=== PATIENT | male | born 1955 | race Caucasian/White ===

== ENCOUNTER → 2019-08-17 | Day surgery (SDC) | payer OTHER ==
[2019-08-16 12:45] VITALS: BP 119/78
[2019-08-16 15:16] LABS: BASOPHILS # (AUTO) 0.1 (0.0-0.1); BASOPHILS % 1.5 % (0.0-1.0); EOSINOPHILS % 0.6 % (0.0-6.0); HEMATOCRIT 45.1 % (38.2-49.6); LYMPHOCYTES # (AUTO) 1.3 (1.0-3.2); MEAN CORPUSCULAR HEMOGLOBIN 33.3 pg (28-32); MEAN CORPUSCULAR HGB CONC 35.5 g/dL (31-35); MEAN CORPUSCULAR VOLUME 93.8 fL (81-99); MONOCYTES # (AUTO) 0.6 (0.2-0.8); MONOCYTES % 10.2 % (4.4-11.3); NEUTROPHILS # (AUTO) 3.4 (2.1-6.9); NEUTROPHILS % 63.5 % (38.7-80.0); PLATELET COUNT 153 x10e3/uL (140-360); RED BLOOD COUNT 4.81 x10e6/uL (4.3-5.7); RED CELL DISTRIBUTION WIDTH 13.1 % (11.7-14.4)
[2019-08-16 15:35] LABS: INR 0.96; PROTHROMBIN TIME 13.3 seconds (11.9-14.5)
[2019-08-16 15:36] LABS: PARTIAL THROMBOPLASTIN TIME 28.1 seconds (23.8-35.5)
[2019-08-16 15:41] LABS: ANION GAP 11.8 mmol/L (8-16); BLOOD UREA NITROGEN 11 mg/dL (7-26); BUN/CREATININE RATIO 9 (6-25); CALCIUM 9.1 mg/dL (8.4-10.2); CARBON DIOXIDE 24 mmol/L (22-29); CHLORIDE 108 mmol/L (98-107); CREATININE, SERUM 1.16 mg/dL (0.72-1.25); EST GLOMERULAR FILTRATION RATE > 60 ML/MIN (60-); GLUCOSE 92 mg/dL (74-118); POTASSIUM 3.8 mmol/L (3.5-5.1); SODIUM 140 mmol/L (136-145)
--- NOTE | 2019-08-16 15:50 | Diagnostic Imaging Report ---
Exam: Chest radiograph Clinical History: Preoperative clearance Findings: The cardiomediastinal silhouette and lungs are normal. The regional skeleton and soft tissue are unremarkable. There is no evidence of pleural effusion or pneumothorax. Impression: No radiographic evidence of acute cardiopulmonary disease. Signed by: Dr. Trung Crawford MD on 08/16/2019 3:47 PM
--- NOTE | 2019-08-16 20:59 | Pre Op History & Physical ---
Mr. Ryan is a pleasant 63-year-old man, who is admitted at this time for evaluation of coronary disease. HISTORY OF PRESENT ILLNESS: The patient's told me that she had taken him to a local hospital with symptoms of chest pain where they told him, he did not have a heart attack. However, he then visited my office on August 05 where stress test suggested underlying coronary disease. PAST MEDICAL HISTORY: Significant for ulcerative colitis, diagnosed in 1985. He has had supraventricular tachycardia on Holter monitor in the past. 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 RECENT HOME MEDICATIONS: 1. Folic acid 1 mg daily. 2. Lialda 1.2 g two tablets twice a day. 3. Tamsulosin 0.4 mg daily. 4. Atenolol 25 mg daily. 5. Aspirin 81 mg daily. FAMILY HISTORY: Father at age 42 of sudden cardiac . PERSONAL AND SOCIAL HISTORY: He does not smoke. He occasionally drinks alcohol. ALLERGIES: HE HAS NO KNOWN ALLERGIES. PHYSICAL EXAMINATION: GENERAL: At this time shows an anxious white man. VITAL SIGNS: Blood pressure 126/76, pulse 50 and regular. HEAD, EYES, EARS, NOSE, and THROAT: Unremarkable. NECK: No jugular venous distention. THORAX: Heart sounds S1 and S2 are equal. No murmurs. LUNGS: Clear. ABDOMEN: Protuberant. EXTREMITIES: No cyanosis, clubbing, or edema. LABORATORY DATA: EKG shows sinus rhythm. Stress test suggest underlying coronary disease. ASSESSMENT: 1. Possible underlying coronary disease. 2. History of supraventricular tachycardia. 3. History of ulcerative colitis. PLANS PERFORMED: Left heart catheterization with further management based on results of study. MD SANDRA Patel/TELLY /[id number]
[2019-08-17] VITALS (13 sets, daily range): BP systolic 100–143; BP diastolic 67–90
[~2019-08-17] VITALS: Ht 170.2 cm; Wt 89.8 kg
[~2019-08-17] MED LIST: ALLOPURINOL100 MG PO; ASPIR 8181 MG PO; ATENOLOL50 MG PO; FENTANYL CITRATE/PF 100MCG/2 ML INJ ONE; FLOMAX0.4 MG PO; FOLIC ACID PO; HEPARIN SOD (PORCINE) 1000 UNIT/ML 30ML ONE; HEPARIN SOD/SOD CHLORIDE 2,000 ML ONE; IOPAMIDOL 370 MG/ML 200 ML INFUS..BTL INJ ONE; LIDOCAINE HCL 2% LOCAL 20 ML VIAL ONE; MESALAMINE1.2 GM PO; MIDAZOLAM HCL 2 MG/2 ML VIAL ONE; MORPHINE SULFATE INJ 4 MG/ML INJ 1ML ONE; NITROGLYCERIN/D5W 200 MCG/ML 0 ML ONE; PENTASA500 MG PO; SODIUM CHLORIDE 0.9% 1000ML 1,000 ML ONE
--- NOTE | 2019-08-17 16:40 | NUR ---
Right groin dressing is clean,dry, and intact. Right groin is soft upon palpation. IV to left forearm removed and dressing placed per unit protocol. Dressing to left forearm is clean,dry, and intact. Patient discharged to private vehicle via wheelchair with , Edwina Ryan, as explosives truck driver. Patient discharged with belongings. No distress noted at time of discharge.
--- NOTE | 2019-08-19 18:57 | Operative Report ---
DATE OF PROCEDURE: 08/17/2019 SURGEON: Jayce Posey MD INDICATIONS: Chest discomfort and abnormal stress test. DESCRIPTION OF PROCEDURE: The patient was brought to the analytical lab technician in a fasting and partially sedated state. He is premedicated with a total of 2 mg of Versed and 1 mg of morphine. The right groin was prepped with scrub and 2% xylocaine, and a 4-Algerian sheath was placed in the right common femoral artery. Cardiac cath performed with 4-Algerian pigtail, 4-Algerian right Maggy catheter, and 4-Algerian left Maggy 5 catheter. Inspection of film shows left ventricular function to be normal with estimated ejection fraction of 65%. Right coronary is a dominant vessel. It has no significant narrowings at all. The left Maggy 5 needed to be used, as the aortic root was somewhat dilated. However, the left main, LAD, diagonal, ramus, circumflex, and OM all have no significant narrowing at all. The aortic root was somewhat dilated, but the aortogram was performed in the 30-degree WOLOF projection with no evidence of any dissection. The catheter was removed, pressure held, and he was returned to his room in stable condition. FINAL IMPRESSION: 1. Normal left ventricular function. EF about 65%. 2. Normal coronary arteries. 3. Mildly dilated aortic root without dissection. 4. There was no blood loss. No complication. MD SANDRA Patel/MODL /[id number]
--- NOTE | 2019-08-20 03:49 | Discharge Summary ---
HOSPITAL COURSE: Mr. Ryan is a pleasant 63-year-old man with hypertension, hyperlipidemia, and chest discomfort, who was admitted on the morning of the for left heart catheterization. Unfortunately, the cath lab radiology technician was broken when he first arrived and he and the other patients were delayed. His cardiac cath was performed beginning about 11:30 a.m. Please see the full report, but his catheterization shows no significant coronary artery disease at all and normal left ventricular function. He was monitored for 4 hours after the procedure and discharged to home to continue his current medications. He will follow up in the office in 10 days for further management. DISCHARGE DIAGNOSES: 1. Hypertension. 2. Atypical chest discomfort. 3. Mildly dilated aortic root. 4. Normal coronary arteries. 5. Normal left ventricular function. He will continue his current medications. MD SANDRA Patel/TELLY /[id number]
== END | disposition home or self-care (01) ==
LOC: CATH LAB 08:05
PROVIDERS: ATTEND Internal Medicine Cardiovascular Disease
DX: R07.89 Other chest pain (principal); R94.39 Abnormal result of other cardiovascular function study; I77.819 Aortic ectasia, unspecified site; I10 Essential (primary) hypertension; K51.90 Ulcerative colitis, unspecified, without complications; Z01.810 Encounter for preprocedural cardiovascular examination; Z01.812 Encounter for preprocedural laboratory examination; Z01.818 Encounter for other preprocedural examination
CPT/HCPCS: 36415; 71046; 80048; 85025; 85610; 85730; 86850; 86900; 93005; 93458; 93567; C1766; J2001; J2250; J2270; J7030; Q9967; J1644; J3010